=== PATIENT | female | born 1955 | race Caucasian/White ===

== ENCOUNTER → 2017-04-17 09:46 | Outpatient (CLI) | payer OTHER, SELFPAY ==
[2017-04-17 13:39] LABS: Absolute Lymphocyte Count 1.66 X10^3/ul (0.83-4.51); Absolute Neutrophil Count 3.3 X10^3/uL (2.0-7.7); Basophil# 0.01 X10^3/uL; Basophil% 0.2 % (0-1); Eosinophil# 0.19 X10^3/uL; Eosinophils% 3.4 % (0-5); Hematocrit 42.8 % (37-47); Hemoglobin 14.3 g/dl (12.0-15.0); Lymphocyte # 1.66 X10^3/ul (4.0); Lymphocyte % 29.5 % (19-41); Mean Corp Hgb Conc 33.4 g/gl (32-36); Mean Corpuscular Hgb 32.1 pg (27.0-32.0); Mean Corpuscular Volume 96.2 fL (81-99); Mean Platelet Vol. 11.1 fl (6.2-12.0); Monocyte# 0.42 X10^3/uL; Monocyte% 7.5 % (0-10); Neutrophil # 3.33 X10^3/uL (2.7-7.7); Neutrophil % 59.2 % (47-70); Platelet Count 245 K/mm3 (150-450); RBC Distribution Width CV 12.6 % (11.6-14.6); RBC Distribution Width SD 43.9 fl (35.1-43.9); Red Blood Count 4.45 M/mm3 (4.2-5.4); White Blood Count 5.6 K/mm3 (4.4-11.0)
[2017-04-17 13:42] LABS: POSITIVE COUNT NO; POSITIVE DIFFERENTIAL NO; POSITIVE MORPHOLOGY NO
[2017-04-17 14:12] LABS: ALB/GLOB Ratio 1.2 RATIO (0.9-2.4); AST(SGOT) 19 U/L (15-37); Alanine Aminotransfer ALT/SGPT 27 U/L (13-56); Albumin, Serum 3.6 g/dL (3.2-5.0); Alkaline Phosphatase 82 U/L (45-117); Anion Gap 7 (5-15); BUN 18 mg/dL (7-18); BUN/Creat Ratio 24.4 RATIO (10-20); Calcium,Total 8.6 mg/dL (8.5-10.1); Chloride 105 mmol/L (98-107); Creatinine, Serum 0.74 mg/dL (0.55-1.02); EST Glomerular Filtration Rate 85 mL/min (>60); Est Glom Filt Rate - Afr Amer 103 mL/min (>60); Globulin 3.1 g/dL (2.2-4.2); Glucose 92 mg/dL (74-106); Potassium 4.1 mmol/L (3.5-5.1); Protein, Total 6.7 g/dL (6.4-8.2); Sodium Level 140 mmol/L (136-145); Thyroid Stim Hormone (TSH) 2.42 uIU/mL (0.358-3.74)
[2017-04-18 08:47] LABS: Vitamin D,25 Hydroxy 19.7 ng/mL (29.95-100.01)
[2017-04-18 13:15] LABS: Hep C Antibodies <0.1 s/co ratio (0.0-0.9)
== END ==
PROVIDERS: Family Provider Family Medicine Geriatric Medicine; PCP Family Medicine Geriatric Medicine; Visit Provider Family Medicine Geriatric Medicine
DX: Z13.89 Encounter for screening for other disorder (principal); E55.9 Vitamin D deficiency, unspecified; I10 Essential (primary) hypertension
CPT/HCPCS: 36415; 80053; 82306; 84443; 85025; 86803

== ENCOUNTER → 2017-06-16 11:21 | Outpatient (CLI) | payer OTHER, SELFPAY ==
--- NOTE | 2017-06-16 11:27 | RAD_ITS ---
STUDY: X-RAY - LEFT WRIST REASON FOR EXAM: Female, 61 years old. Pain, no known injury TECHNIQUE: 3 view(s) of the wrist were obtained. COMPARISON: None. FINDINGS: Normal visualized distal radius and ulna. Normal radiocarpal articulation. Normal distal radioulnar articulation. Normal carpal bones. Normal carpal articulations. Normal carpometacarpal articulation of the thumb. Normal second through fifth carpometacarpal articulations. Normal visualized metacarpal bones. The soft tissue structures are unremarkable. RAD/Wrist min 3 Views IMPRESSION: Normal x-ray examination of the wrist. Electronically Signed: Tanner Murcia MD at 11:43 EDT , Service support ,
[2017-06-16 13:31] LABS: Absolute Lymphocyte Count 1.77 X10^3/ul (0.83-4.51); Absolute Neutrophil Count 3.6 X10^3/uL (2.0-7.7); Basophil# 0.02 X10^3/uL; Basophil% 0.3 % (0-1); Eosinophil# 0.24 X10^3/uL; Eosinophils% 3.8 % (0-5); Hematocrit 43.7 % (37-47); Hemoglobin 14.6 g/dl (12.0-15.0); Lymphocyte # 1.77 X10^3/ul (4.0); Lymphocyte % 28.2 % (19-41); Mean Corp Hgb Conc 33.4 g/gl (32-36); Mean Corpuscular Hgb 32.1 pg (27.0-32.0); Mean Platelet Vol. 11.4 fl (6.2-12.0); Monocyte# 0.68 X10^3/uL; Monocyte% 10.8 % (0-10); Neutrophil # 3.55 X10^3/uL (2.7-7.7); Neutrophil % 56.7 % (47-70); Platelet Count 226 K/mm3 (150-450); RBC Distribution Width CV 11.9 % (11.6-14.6); RBC Distribution Width SD 40.8 fl (35.1-43.9); Red Blood Count 4.55 M/mm3 (4.2-5.4); White Blood Count 6.3 K/mm3 (4.4-11.0)
[2017-06-16 13:43] LABS: POSITIVE COUNT NO; POSITIVE DIFFERENTIAL NO; POSITIVE MORPHOLOGY NO
[2017-06-16 13:51] LABS: Anion Gap 6 (5-15); BUN 18 mg/dL (7-18); BUN/Creat Ratio 23.1 RATIO (10-20); CRP, High Sensitivity Cardiac 2.65 mg/L; Calcium,Total 8.9 mg/dL (8.5-10.1); Chloride 105 mmol/L (98-107); Creatinine, Serum 0.78 mg/dL (0.55-1.02); EST Glomerular Filtration Rate 80 mL/min (>60); Est Glom Filt Rate - Afr Amer 97 mL/min (>60); Glucose 90 mg/dL (74-106); Potassium 3.9 mmol/L (3.5-5.1); Sodium Level 140 mmol/L (136-145); Uric Acid 5.6 mg/dL (2.6-6.0)
[2017-06-16 13:56] LABS: Erythrocyte Sedimentation Rate 1 mm/hr (0-30)
== END ==
PROVIDERS: Family Provider Family Medicine Geriatric Medicine; PCP Family Medicine Geriatric Medicine; Visit Provider Family Medicine Geriatric Medicine
DX: M25.532 Pain in left wrist (principal); M10.9 Gout, unspecified
CPT/HCPCS: 36415; 73110; 80048; 84550; 85025; 85652; 86141

== ENCOUNTER → 2017-10-13 11:17 | Outpatient (CLI) | payer OTHER, SELFPAY ==
[2017-10-13 13:34] LABS: Absolute Lymphocyte Count 1.72 X10^3/ul (0.83-4.51); Absolute Neutrophil Count 5.6 X10^3/uL (2.0-7.7); Basophil# 0.02 X10^3/uL; Basophil% 0.2 % (0-1); Eosinophil# 0.08 X10^3/uL; Hematocrit 44.3 % (37-47); Hemoglobin 14.8 g/dl (12.0-15.0); Lymphocyte # 1.72 X10^3/ul (4.0); Lymphocyte % 21.2 % (19-41); Mean Corp Hgb Conc 33.4 g/gl (32-36); Mean Corpuscular Hgb 33.3 pg (27.0-32.0); Mean Corpuscular Volume 99.6 fL (81-99); Mean Platelet Vol. 11.3 fl (6.2-12.0); Monocyte# 0.66 X10^3/uL; Monocyte% 8.1 % (0-10); Neutrophil # 5.63 X10^3/uL (2.7-7.7); Neutrophil % 69.4 % (47-70); POSITIVE COUNT NO; POSITIVE DIFFERENTIAL NO; POSITIVE MORPHOLOGY NO; Platelet Count 235 K/mm3 (150-450); RBC Distribution Width SD 43.1 fl (35.1-43.9); Red Blood Count 4.45 M/mm3 (4.2-5.4); White Blood Count 8.1 K/mm3 (4.4-11.0)
[2017-10-13 13:53] LABS: Vitamin D,25 Hydroxy 41.3 ng/mL (29.95-100.01)
[2017-10-13 14:01] LABS: ALB/GLOB Ratio 1.2 RATIO (0.9-2.4); AST(SGOT) 22 U/L (15-37); Alanine Aminotransfer ALT/SGPT 27 U/L (13-56); Alkaline Phosphatase 94 U/L (45-117); Anion Gap 13 (5-15); BUN 16 mg/dL (7-18); BUN/Creat Ratio 21.7 RATIO (10-20); Calcium,Total 8.9 mg/dL (8.5-10.1); Chloride 105 mmol/L (98-107); Creatinine, Serum 0.74 mg/dL (0.55-1.02); EST Glomerular Filtration Rate 85 mL/min (>60); Est Glom Filt Rate - Afr Amer 102 mL/min (>60); Globulin 3.3 g/dL (2.2-4.2); Glucose 76 mg/dL (74-106); Potassium 3.9 mmol/L (3.5-5.1); Protein, Total 7.3 g/dL (6.4-8.2); Sodium Level 140 mmol/L (136-145); Thyroid Stim Hormone (TSH) 1.79 uIU/mL (0.358-3.74)
== END ==
PROVIDERS: Family Provider Family Medicine Geriatric Medicine; PCP Family Medicine Geriatric Medicine; Visit Provider Family Medicine Geriatric Medicine
DX: E55.9 Vitamin D deficiency, unspecified (principal); I10 Essential (primary) hypertension
CPT/HCPCS: 36415; 80053; 82306; 84443; 85025

== ENCOUNTER → 2017-10-21 11:35 | Outpatient (CLI) | payer OTHER, SELFPAY | PROVIDERS: Family Provider Family Medicine Geriatric Medicine; PCP Family Medicine Geriatric Medicine; Visit Provider Family Medicine Geriatric Medicine | DX: R60.0 Localized edema (principal) | CPT/HCPCS: 93970 ==

== ENCOUNTER → 2017-10-23 13:53 | Outpatient (CLI) | payer OTHER, SELFPAY | PROVIDERS: Family Provider Family Medicine Geriatric Medicine; PCP Family Medicine Geriatric Medicine; Visit Provider Family Medicine Geriatric Medicine | DX: R22.1 Localized swelling, mass and lump, neck (principal) | CPT/HCPCS: 76536 ==

== ENCOUNTER → 2018-04-20 09:29 | Outpatient (CLI) | payer OTHER, SELFPAY ==
[2018-04-20 11:59] LABS: Absolute Lymphocyte Count 2.02 X10^3/ul (0.83-4.51); Absolute Neutrophil Count 3.9 X10^3/uL (2.0-7.7); Basophil# 0.02 X10^3/uL; Basophil% 0.3 % (0-1); Eosinophil# 0.17 X10^3/uL; Eosinophils% 2.5 % (0-5); Hematocrit 44.8 % (37-47); Hemoglobin 14.6 g/dl (12.0-15.0); Lymphocyte # 2.02 X10^3/ul (4.0); Lymphocyte % 29.2 % (19-41); Mean Corp Hgb Conc 32.6 g/gl (32-36); Mean Corpuscular Hgb 31.9 pg (27.0-32.0); Mean Corpuscular Volume 97.8 fL (81-99); Mean Platelet Vol. 11.5 fl (6.2-12.0); Monocyte# 0.76 X10^3/uL; Neutrophil # 3.94 X10^3/uL (2.7-7.7); Neutrophil % 56.9 % (47-70); Platelet Count 240 K/mm3 (150-450); RBC Distribution Width CV 12.5 % (11.6-14.6); RBC Distribution Width SD 44.7 fl (35.1-43.9); Red Blood Count 4.58 M/mm3 (4.2-5.4); White Blood Count 6.9 K/mm3 (4.4-11.0)
[2018-04-20 12:01] LABS: POSITIVE COUNT NO; POSITIVE DIFFERENTIAL NO; POSITIVE MORPHOLOGY NO
[2018-04-20 12:18] LABS: Vitamin D,25 Hydroxy 25.6 ng/mL (29.95-100.01)
[2018-04-20 12:19] LABS: ALB/GLOB Ratio 1.2 RATIO (0.9-2.4); AST(SGOT) 21 U/L (15-37); Alanine Aminotransfer ALT/SGPT 35 U/L (13-56); Albumin, Serum 3.7 g/dL (3.2-5.0); Alkaline Phosphatase 91 U/L (45-117); Anion Gap 10 (5-15); BUN 16 mg/dL (7-18); BUN/Creat Ratio 20.1 RATIO (10-20); Calcium,Total 8.7 mg/dL (8.5-10.1); Chloride 105 mmol/L (98-107); EST Glomerular Filtration Rate 77 mL/min (>60); Est Glom Filt Rate - Afr Amer 94 mL/min (>60); Globulin 3.1 g/dL (2.2-4.2); Glucose 77 mg/dL (74-106); Potassium 3.8 mmol/L (3.5-5.1); Protein, Total 6.8 g/dL (6.4-8.2); Sodium Level 143 mmol/L (136-145); Thyroid Stim Hormone (TSH) 3.13 uIU/mL (0.358-3.74); Uric Acid 5.5 mg/dL (2.6-6.0)
== END ==
PROVIDERS: Family Provider Family Medicine Geriatric Medicine; PCP Family Medicine Geriatric Medicine; Visit Provider Family Medicine Geriatric Medicine
DX: E11.9 Type 2 diabetes mellitus without complications (principal); I10 Essential (primary) hypertension; M10.9 Gout, unspecified
CPT/HCPCS: 36415; 80053; 82306; 84443; 84550; 85025

== ENCOUNTER → 2018-10-30 08:55 | Outpatient (CLI) | payer OTHER, SELFPAY ==
[2018-10-30 12:17] LABS: Absolute Lymphocyte Count 1.88 X10^3/uL (0.83-4.51); Absolute Neutrophil Count 3.6 X10^3/uL (2.0-7.7); Basophil# 0.03 X10^3/uL; Basophil% 0.5 % (0-1); Eosinophil# 0.18 X10^3/uL; Eosinophils% 2.8 % (0-5); Hematocrit 42.5 % (37-47); Hemoglobin 14.2 g/dL (12.0-15.0); Lymphocyte # 1.88 X10^3/ul (4.0); Lymphocyte % 29.6 % (19-41); Mean Corp Hgb Conc 33.4 g/dL (32-36); Mean Corpuscular Hgb 32.1 pg (27.0-32.0); Mean Corpuscular Volume 96.2 fL (81-99); Mean Platelet Vol. 11.2 fl (6.2-12.0); Monocyte# 0.68 X10^3/uL; Monocyte% 10.7 % (0-10); NRBC Flagged by Analyzer 0 % (0-5); Neutrophil # 3.56 X10^3/uL (2.7-7.7); Neutrophil % 56.1 % (47-70); Platelet Count 213 K/mm3 (150-450); RBC Distribution Width CV 11.9 % (11.6-14.6); RBC Distribution Width SD 41.6 fl (35.1-43.9); Red Blood Count 4.42 M/mm3 (4.2-5.4); White Blood Count 6.4 K/mm3 (4.4-11.0)
[2018-10-30 13:20] LABS: Vitamin D,25 Hydroxy 66.8 ng/mL (29.95-100.01)
[2018-10-30 14:47] LABS: ALB/GLOB Ratio 1.1 RATIO (0.9-2.4); AST(SGOT) 27 U/L (15-37); Alanine Aminotransfer ALT/SGPT 31 U/L (13-56); Albumin, Serum 3.7 g/dL (3.2-5.0); Alkaline Phosphatase 80 U/L (45-117); Anion Gap 8 (5-15); BUN 19 mg/dL (7-18); Calcium,Total 8.5 mg/dL (8.5-10.1); Chloride 109 mmol/L (98-107); Creatinine, Serum 0.86 mg/dL (0.55-1.02); EST Glomerular Filtration Rate 70 mL/min (>60); Est Glom Filt Rate - Afr Amer 85 mL/min (>60); Globulin 3.5 g/dL (2.2-4.2); Glucose 74 mg/dL (74-106); Potassium 4.1 mmol/L (3.5-5.1); Protein, Total 7.2 g/dL (6.4-8.2); Sodium Level 140 mmol/L (136-145); Thyroid Stim Hormone (TSH) 1.98 uIU/mL (0.358-3.74); Uric Acid 6.1 mg/dL (2.6-6.0)
== END ==
PROVIDERS: Family Provider Family Medicine Geriatric Medicine; PCP Family Medicine Geriatric Medicine; Visit Provider Family Medicine Geriatric Medicine
DX: E11.9 Type 2 diabetes mellitus without complications (principal); E55.9 Vitamin D deficiency, unspecified; I10 Essential (primary) hypertension; M10.9 Gout, unspecified
CPT/HCPCS: 36415; 80053; 82306; 84443; 84550; 85025

== ENCOUNTER → 2018-11-13 10:09 | Outpatient (CLI) | payer OTHER, SELFPAY ==
[2018-11-13 13:26] LABS: Anion Gap 8 (5-15); BUN 17 mg/dL (7-18); BUN/Creat Ratio 23.4 RATIO (10-20); Calcium,Total 8.9 mg/dL (8.5-10.1); Chloride 109 mmol/L (98-107); Creatinine, Serum 0.73 mg/dL (0.55-1.02); EST Glomerular Filtration Rate 86 mL/min (>60); Est Glom Filt Rate - Afr Amer 104 mL/min (>60); Glucose 91 mg/dL (74-106); Sodium Level 143 mmol/L (136-145)
== END ==
PROVIDERS: Family Provider Family Medicine Geriatric Medicine; PCP Family Medicine Geriatric Medicine; Visit Provider Family Medicine Geriatric Medicine
DX: I10 Essential (primary) hypertension (principal)
CPT/HCPCS: 36415; 80048

== ENCOUNTER → 2019-04-20 10:24 | Outpatient (CLI) | payer OTHER, SELFPAY ==
[2019-04-20 12:40] LABS: Absolute Neutrophil Count 4.1 X10^3/uL (2.0-7.7); Basophil# 0.03 X10^3/uL; Basophil% 0.4 % (0-1); Eosinophil# 0.35 X10^3/uL; Eosinophils% 5.1 % (0-5); Hematocrit 41.3 % (37-47); Hemoglobin 13.6 g/dL (12.0-15.0); Lymphocyte % 24.6 % (19-41); Mean Corp Hgb Conc 32.9 g/dL (32-36); Mean Corpuscular Hgb 31.4 pg (27.0-32.0); Mean Corpuscular Volume 95.4 fL (81-99); Mean Platelet Vol. 11.6 fl (6.2-12.0); Monocyte# 0.76 X10^3/uL; NRBC Flagged by Analyzer 0 % (0-5); Neutrophil # 4.05 X10^3/uL (2.7-7.7); Neutrophil % 58.6 % (47-70); Platelet Count 231 K/mm3 (150-450); RBC Distribution Width CV 12.4 % (11.6-14.6); RBC Distribution Width SD 43.3 fl (35.1-43.9); Red Blood Count 4.33 M/mm3 (4.2-5.4); White Blood Count 6.9 K/mm3 (4.4-11.0)
[2019-04-20 13:08] LABS: ALB/GLOB Ratio 0.9 RATIO (0.9-2.4); AST(SGOT) 16 U/L (15-37); Alanine Aminotransfer ALT/SGPT 28 U/L (13-56); Albumin, Serum 3.4 g/dL (3.2-5.0); Alkaline Phosphatase 93 U/L (45-117); Anion Gap 5 (5-15); BUN 23 mg/dL (7-18); BUN/Creat Ratio 25.7 RATIO (10-20); Calcium,Total 8.8 mg/dL (8.5-10.1); Chloride 107 mmol/L (98-107); Creatinine, Serum 0.89 mg/dL (0.55-1.02); EST Glomerular Filtration Rate 68 mL/min (>60); Est Glom Filt Rate - Afr Amer 82 mL/min (>60); Globulin 3.6 g/dL (2.2-4.2); Glucose 82 mg/dL (74-106); Potassium 4.1 mmol/L (3.5-5.1); Sodium Level 139 mmol/L (136-145); Thyroid Stim Hormone (TSH) 3.19 uIU/mL (0.358-3.74); Uric Acid 5.4 mg/dL (2.6-6.0)
[2019-04-20 14:47] LABS: Vitamin D,25 Hydroxy 78.4 ng/mL
== END ==
PROVIDERS: PCP Family Medicine Geriatric Medicine; Visit Provider Family Medicine Geriatric Medicine
DX: I10 Essential (primary) hypertension (principal); E11.9 Type 2 diabetes mellitus without complications; E55.9 Vitamin D deficiency, unspecified; M10.9 Gout, unspecified
CPT/HCPCS: 36415; 80053; 82306; 84443; 84550; 85025

== ENCOUNTER → 2019-04-29 11:43 | Outpatient (CLI) | payer OTHER, SELFPAY | PROVIDERS: PCP Family Medicine Geriatric Medicine; Referring Provider Family Medicine Geriatric Medicine; Visit Provider Family Medicine Geriatric Medicine | DX: R50.9 Fever, unspecified (principal) | CPT/HCPCS: 87633 ==

== ENCOUNTER 2022-07-31 07:53 | Emergency (ER) | payer MEDICARE, OTHER, SELFPAY ==
[2022-07-31 07:55] VITALS: BP 99/49; PULSE 112; RESP 18; TEMP 35.7; O2SAT 97; BMI 25.4
--- NOTE | 2022-07-31 08:19 | CT_ITS ---
STUDY: CT ABDOMEN AND PELVIS WITH CONTRAST REASON FOR EXAM: Female, 66 years old. RLQ and upper abd pain. History of carcinoid tumor. Mesenteric venous thrombosis. Prior small bowel resection. RADIATION DOSAGE (If Supplied By Facility): CTDIvol = ( 10.10 ) mGy, DLP = ( 479.30 ) mGycm TECHNIQUE: Transaxial images were obtained from the dome of the diaphragm to the symphysis pubis without oral contrast. IV 100mL Isovue-300 was administered. Sagittal and coronal images were reconstructed. Individualized dose optimization techniques were used for this CT. COMPARISON: Comparison is made with prior study dated February 07, 2014. FINDINGS: The visualized lung bases are unremarkable. The visualized portions of the heart are within normal limits. There is a 1.5 cm well-defined rounded nodule in the mesenteric fat anterior to the left lobe of the liver. This may represent a small lymph node. There is a faint 6.1 mm hypodense nodule in the peripheral lateral aspect of the right lobe of the liver. A similar-appearing hypodense nodule seen in the right lobe of the liver in the midportion. Small amount of free fluid surrounding the liver. The gallbladder is not visualized most likely secondary to prior cholecystectomy. Normal spleen. Normal pancreas. Free fluid is seen in the left upper quadrant. Normal bilateral adrenal glands. There is a 3.3 cm x 3.3 cm cyst in the posterior aspect of the lower pole of the right kidney. A similar appearing cyst measuring 2.9 cm is seen along the medial aspect of the upper pole. Normal left kidney. Normal visualized stomach. Dilated small bowel loops with evidence of a fecal laceration within the lumen suggestive of a subacute bowel obstruction. Surgical clips are seen in the right lower quadrant most likely secondary to prior anastomosis. There is evidence of circumferential wall thickening of several of the small bowel loops. There is stranding within the root of the mesentery with the swirling of the mesenteric artery and mesenteric vein. Findings are suggestive of recurrent carcinoid tumor with fibrosis at the root of the mesentery. Moderate amount of fecal material is seen in the distal colon and rectum. The appendix is visualized and appears normal. Normal abdominal aorta. Normal inferior vena cava. Normal retroperitoneum. Normal urinary bladder. I suspect a 3.5 cm x 4.2 cm mass in the left adnexa. Normal abdominal wall. There are mild degenerative changes of the visualized lumbar spine. CT/Abdomen/Pelvis W IV Cont ONLY IMPRESSION: Perisplenic and perihepatic free fluid. Subtle subcentimeter nodules in the right lobe of the liver as described. Dilated small bowel loops with fecal-like dictation of the small bowel contents and swirling of the mesentery territory as described. Findings are suggestive of fibrosis due to recurrent known carcinoid tumor. Left adnexal mass. N.B. : The above Results were Read Back by Apolinar Bartholomew MD to Joel Casanova MD, and understanding confirmed on 07/31/2022 10:03:38 (ET). Electronically Signed: Apolinar Bartholomew MD at 10:04 EDT ,
--- NOTE | 2022-07-31 08:20 | ED.VIS.GI ---
HPI HPI - GI History of Present Illness Chief Complaint: Abd Pain Informant: patient Narrative Narrative: Patient had diffuse upper and lower abdominal pain all day yesterday, she felt nauseated and did not feel like eating and took in very little food, she vomited 3 times, she states it looked greenish almost like bile rather than the usual yellow and she is all no blood or coffee grounds but this morning she had a black stool which brought her to the emergency department. The other symptoms are unchanged right now. She takes clopidogrel because in March she was diagnosed with some type of blood clot in a mesenteric vein (per pt suggestion only - no other records avail), this was at a hospital in [place] and diagnosed with CT. She takes no anticoagulants for any reason. Within the past 2 months or so, she started feeling reflux and has been self treating with Prilosec 20 mg once daily. No known history of stomach ulcers. [facility] Medical History (Updated 07/31/22 @ 14:[address] Joel Casanova MD) Carcinoid tumor High cholesterol Hypertension Home Medications Lisinopril/Hydrochlorothiazide [Zestoretic 20/12.5 Tablet] 1 tab PO DAILY 01/29/14 [History Last Taken Unknown] pravastatin 40 mg tablet 40 mg PO QHS 01/29/14 [History Last Taken Unknown] promethazine 25 mg tablet 25 mg PO Q6H PRN PRN Nausea 01/29/14 [History Last Taken Unknown] Nexium 05/18/15 [History Last Taken Unknown] dicyclomine 10 mg capsule 20 mg PO TIDAC ##20 05/18/15 [Rx Last Taken Unknown] famotidine 40 mg tablet (Pepcid) 40 mg PO DAILY 30 days 05/18/15 [Rx Last Taken Unknown] ondansetron HCl 8 mg tablet 8 mg PO Q8H PRN PRN nausea and/or vomiting ##10 05/18/15 [Rx Last Taken Unknown] levothyroxine 25 mcg tablet 25 mcg PO DAILY 07/31/22 [History Last Taken Unknown] ondansetron 4 mg disintegrating tablet 8 mg PO Q8H PRN PRN Nausea #20 tabs 07/31/22 [Rx Last Taken Unknown] oxycodone-acetaminophen 5 mg-325 mg tablet 1 tab PO Q6H PRN PRN Pain 3 days #12 TABLETS 07/31/22 [Rx Last Taken Unknown] Allergy/AdvReac Type Severity Reaction Status Date / Time No Known Allergies Allergy Verified 05/18/15 10:18 Surgical History (Updated 07/31/22 @ 08:[address] Joel Casanova MD) History of bilateral tubal ligation History of bowel resection Hx of cholecystectomy Social History Smoking Status: Former smoker ROS ROS ED Constitutional Constitutional ED: Reports anorexia; Denies chills or fever(s) Eyes Eyes: Denies change in vision or diplopia ENT ENT ED: Denies rhinorrhea or sore throat Cardiovascular Cardiovascular: Denies chest pain or palpitations Respiratory/Chest Respiratory/Chest: Denies cough or dyspnea Gastrointestinal Gastrointestinal: Reports abdominal pain, melena, nausea and vomiting; Denies diarrhea Genitourinary Genitourinary ED: Denies dysuria or hematuria Musculoskeletal Musculoskeletal: Denies back pain or neck pain Integumentary Denies abscess or rash Neurologic Neurologic: Denies headache(s), paresthesias or weakness Psychiatric Psychiatric: Denies anxiety or suicidal thoughts EXAM Physical Exam Const Vital Signs: 07/31/22 07:55 07/31/22 09:17 07/31/22 10:04 Temperature 96.2 F L Temperature Source Temporal Pulse Rate 112 H 92 Pulse Rate [Lying] 89 Pulse Rate [Sitting (for 1 minute prior to obtaining)] 94 Pulse Rate [Standing (for 1 minute prior to obtaining)] 103 H Respiratory Rate 18 14 Blood Pressure 99/49 L 110/62 Blood Pressure [Lying] 112/65 Blood Pressure [Sitting (for 1 minute prior to obtaining)] 115/66 Blood Pressure [Standing (for 1 minute prior to obtaining)] 100/64 Blood Pressure Mean 65 78 Blood Pressure Mean [Lying] 80 Blood Pressure Mean [Sitting (for 1 minute prior to obtaining)] 82 Blood Pressure Mean [Standing (for 1 minute prior to obtaining)] 76 Pulse Ox 97 98 Oxygen Delivery Method Room Air Room Air 07/31/22 13:02 Temperature Temperature Source Pulse Rate 81 Pulse Rate [Lying] Pulse Rate [Sitting (for 1 minute prior to obtaining)] Pulse Rate [Standing (for 1 minute prior to obtaining)] Respiratory Rate 18 Blood Pressure 110/66 Blood Pressure [Lying] Blood Pressure [Sitting (for 1 minute prior to obtaining)] Blood Pressure [Standing (for 1 minute prior to obtaining)] Blood Pressure Mean 80 Blood Pressure Mean [Lying] Blood Pressure Mean [Sitting (for 1 minute prior to obtaining)] Blood Pressure Mean [Standing (for 1 minute prior to obtaining)] Pulse Ox 95 Oxygen Delivery Method Room Air Positive well nourished and well developed General Appearance ED: well developed and NAD HEENT Reports moist mucous membranes normocephalic and atraumatic Eyes PERRL and EOMs intact bilaterally Neck full ROM and supple Resp normal respiratory effort and clear to auscultation bilaterally Cardio regular rate, regular rhythm and no murmurs GI non-distended GI Narrative: Tender epigastrium and right lower quadrant mostly; otherwise subjectively mild diffuse tenderness, no guarding or rebound tenderness. On rectal no gross blood, no tenderness, stool is not grossly melanotic, there is a scant amount present. Auscultation: hypoactive bowel sounds Palpation: soft Back/Spine no CVA tenderness General Back: other FROM Extremity normal to inspection General Extremety ED: Negative for edema, pulses abnormal or tenderness General Extremity: Negative for edema or pulses abnormal Neuro oriented x3, CN's II-XII intact bilaterally, no sensory deficits noted and gait normal Sensorium / Orientation: awake and alert Motor Exam: strength 5/5 throughout Psych mental status grossly normal and thought process normal Skin no rashes or lesions noted and no wounds MDM MDM MDM Narrative Medical decision making narrative: Differential includes sources of upper GI bleeding such as peptic ulcer disease and gastritis, but also bowel obstruction given the patient's history of multiple abdominal surgeries including carcinoid, with or without ischemic bowel. Therefore labs including a lactic acid, type and screen, and a CT of the abdomen/pelvis were obtained, the radiologist called me out of concern for recurrence of her carcinoid tumor along with the presence of what appears to be a bowel obstruction. I sent a Hemoccult. Her lactate is within normal limits, she is not having active bleeding, arguing against acute ischemic bowel. Treated the patient with IV fluids, Zofran. When I went to discuss these findings with the patient, she states that she is scheduled for colorectal surgery in 6 [address] surgeon [address] Marroquin at [facility]. When asked details, she states something about the findings from March still being there. It is unknown if she actually has mesenteric vein thrombosis since it would be unusual to undergo abdominal surgery for this, or whether she already had testing and knew that she had recurrence of her carcinoid. Given that she is established with colorectal at [facility], I do not see a point in discussing with staff for admission here, I think she requires transfer, I called to discuss with colorectal there first. The transfer center got me in touch with the oncology service Dr. Banda, who then in turn touched base with colorectal service after I push the images to their gravity meter observer so that they could review and determine whether the patient really needs to be transferred or not; clinically I think she is doing relatively well after treating her symptoms and remains clinically and hemodynamically stable. I then discussed with colorectal who reviewed the patient's notes at [facility] as well as the images we did today in comparison to previous images that they have, and in the end it looks like things are pretty stable appearing. After discussing more with the patient, she confirms my suspicion which she did not say earlier that she always has abdominal pain and this is just worse in the past 3 days, and again she has not been vomiting. Therefore I do not think she has any acute small bowel obstruction, she was already scheduled for surgery 09/05 for basically I think tumor debulking for obstructive issues according to the surgeon, he and I both agree that it would not necessarily be helpful to have her be transferred to [facility] emergently today. The patient is amenable to trying analgesics and nausea medications, and following up. If she vomits and cannot keep anything down and is getting worse she is welcome and encouraged to return to the ER here she is comfortable with that plan. Lab Data Attestation: I reviewed the patient's lab results. Labs: Laboratory Results - last 24 hr 07/31/22 07/31/22 07/31/22 08:24 08:24 08:24 WBC 8.8 RBC 3.74 L Hgb 12.0 Hct 36.6 L MCV 97.9 MCH 32.1 H MCHC 32.8 RDW Std Deviation 42.0 RDW Coeff of Nancy 11.6 Plt Count 174 MPV 9.5 Immature Gran % (Auto) 0.200 Neut % (Auto) 85.5 H Lymph % (Auto) 4.0 L Barron % (Auto) 10.2 H Eos % (Auto) 0.0 Baso % (Auto) 0.1 Absolute Neuts (auto) 7.5 Absolute Lymphs (auto) 0.35 L Nucleated RBC % 0 Differential Comment SCANNED Sodium 138 Potassium 4.1 Chloride 106 Carbon Dioxide 27.0 Anion Gap 5 BUN 16 Creatinine 0.86 Estim Creat Clear Calc 58.15 Est GFR (MDRD) Af Amer 85 Est GFR (MDRD) Non-Af 70 BUN/Creatinine Ratio 18.6 Glucose 129 H Lactic Acid Calcium 9.1 Total Bilirubin 0.80 AST 12 L ALT 15 Alkaline Phosphatase 72 Total Protein 7.0 Albumin 3.2 Globulin 3.8 Albumin/Globulin Ratio 0.8 L Blood Type A POSITIVE Antibody Screen NEGATIVE 07/31/22 08:24 WBC RBC Hgb Hct MCV MCH MCHC RDW Std Deviation RDW Coeff of Nancy Plt Count MPV Immature Gran % (Auto) Neut % (Auto) Lymph % (Auto) Barron % (Auto) Eos % (Auto) Baso % (Auto) Absolute Neuts (auto) Absolute Lymphs (auto) Nucleated RBC % Differential Comment Sodium Potassium Chloride Carbon Dioxide Anion Gap BUN Creatinine Estim Creat Clear Calc Est GFR (MDRD) Af Amer Est GFR (MDRD) Non-Af BUN/Creatinine Ratio Glucose Lactic Acid 1.7 Calcium Total Bilirubin AST ALT Alkaline Phosphatase Total Protein Albumin Globulin Albumin/Globulin Ratio Blood Type Antibody Screen Radiography Diagnostic Testing: Clinical Impression(s) from Imaging Studies Abdomen/Pelvis CT 07/31/22 08:19 IMPRESSION: Perisplenic and perihepatic free fluid. Subtle subcentimeter nodules in the right lobe of the liver as described. Dilated small bowel loops with fecal-like dictation of the small bowel contents and swirling of the mesentery territory as described. Findings are suggestive of fibrosis due to recurrent known carcinoid tumor. Left adnexal mass. N.B. : The above Results were Read Back by Apolinar Bartholomew MD to Joel Casanova MD, and understanding confirmed on 07/31/2022 10:03:38 (ET). Electronically Signed: Apolinar Bartholomew MD at 10:04 EDT , ADDENDUM: 07/31/22 1011 IMPRESSION: Perisplenic and perihepatic free fluid. Subtle subcentimeter nodules in the right lobe of the liver as described. Dilated small bowel loops with fecal-like dictation of the small bowel contents and swirling of the mesentery territory as described. Findings are suggestive of fibrosis due to recurrent known carcinoid tumor. Left adnexal mass. N.B. : The above Results were Read Back by Apolinar Bartholomew MD to Joel Casanova MD, and understanding confirmed on 07/31/2022 10:03:38 (ET). Electronically Signed: Apolinar Bartholomew MD at 10:04 EDT , Discharge Plan Triage Chief Complaint: Abd Pain Other Complaint: GI Bleed ED Provider: Joel Casanova Dx/Rx/DC Orders Clinical Impression: Carcinoid tumor of abdomen, Diffuse abdominal pain Instructions: Abdominal Pain Prescriptions: New oxycodone-acetaminophen [oxycodone-acetaminophen] 5-325 mg tablet 1 tab PO Q6H PRN PRN (Reason: Pain) 3 Days Qty: 12 0RF ondansetron [ondansetron] 4 mg tablet,disintegrating 8 mg PO Q8H PRN PRN (Reason: Nausea) Qty: 20 0RF No Action pravastatin 40 MG tablet 40 mg PO QHS promethazine 25 MG tablet 25 mg PO Q6H PRN PRN (Reason: Nausea) Lisinopril/Hydrochlorothiazide [Zestoretic 20/12.5 Tablet] 1 TABLET tablet 1 tab PO DAILY Nexium famotidine [Pepcid] 40 MG tablet 40 mg PO DAILY 30 Days 0RF ondansetron HCl 8 MG tablet 8 mg PO Q8H PRN PRN (Reason: nausea and/or vomiting) Qty: 10 0RF dicyclomine 10 MG capsule 20 mg PO TIDAC Qty: 20 0RF levothyroxine 25 mcg tablet 25 mcg PO DAILY Primary Care Provider: WILMER SORTO CNP Referrals: Valentin Ramos Chi, MD [Med Staff - Active Staff] - 3-5 Days if not improving (Or your [facility] doctors) Disposition Disposition: Home, Self Care
[2022-07-31] MEDS: Ondansetron 4 MG/2 ML Vial IV (08:50)
[2022-07-31 08:59] LABS: Absolute Lymphocyte Count 0.35 X10^3/uL (0.83-4.51); Absolute Neutrophil Count 7.5 X10^3/uL (2.0-7.7); Basophil# 0.01 X10^3/uL; Basophil% 0.1 % (0-1); Hematocrit 36.6 % (37-47); Lymphocyte # 0.35 X10^3/ul (0.83-4.51); Mean Corp Hgb Conc 32.8 g/dL (32-36); Mean Corpuscular Hgb 32.1 pg (27.0-32.0); Mean Corpuscular Volume 97.9 fL (81-99); Mean Platelet Vol. 9.5 fl (6.2-12.0); Monocyte% 10.2 % (0-10); NRBC Flagged by Analyzer 0 % (0-5); Neutrophil # 7.52 X10^3/uL (2.7-7.7); Neutrophil % 85.5 % (47-70); POSITIVE DIFFERENTIAL YES; Platelet Count 174 K/mm3 (150-450); RBC Distribution Width CV 11.6 % (11.6-14.6); Red Blood Count 3.74 M/mm3 (4.2-5.4); White Blood Count 8.8 K/mm3 (4.4-11.0)
[2022-07-31 09:10] LABS: Differential Indicated SCAN CRITERIA MET
[2022-07-31 09:14] LABS: ALB/GLOB Ratio 0.8 RATIO (0.9-2.4); AST(SGOT) 12 U/L (15-37); Alanine Aminotransfer ALT/SGPT 15 U/L (13-56); Albumin, Serum 3.2 g/dL (3.2-5.0); Alkaline Phosphatase 72 U/L (45-117); Anion Gap 5 (5-15); BUN 16 mg/dL (7-18); BUN/Creat Ratio 18.6 RATIO (10-20); Calcium,Total 9.1 mg/dL (8.5-10.1); Chloride 106 mmol/L (98-107); Creatinine, Serum 0.86 mg/dL (0.55-1.02); EST Glomerular Filtration Rate 70 mL/min (>60); Est Glom Filt Rate - Afr Amer 85 mL/min (>60); Estimated Creatinine Clearance 58.15 ml/min; Globulin 3.8 g/dL (2.2-4.2); Glucose 129 mg/dL (74-106); Potassium 4.1 mmol/L (3.5-5.1); Sodium Level 138 mmol/L (136-145)
[2022-07-31 09:17] VITALS: BP 100/64; BP 112/65; BP 115/66; PULSE 103; PULSE 89; PULSE 94
[2022-07-31 09:19] LABS: Differential Comment SCANNED
[2022-07-31 09:49] LABS: Lactic Acid 1.7 mmol/L (0.4-1.9)
[2022-07-31 10:04] VITALS: BP 110/62; PULSE 92; RESP 14; O2SAT 98
--- NOTE | 2022-07-31 10:21 | NURSING ---
CALLED [facility] AND MADE INITIAL CALL FOR A TRANSFER. TALKED TO ANA LAURA FAXED FACESHEET
--- NOTE | 2022-07-31 11:41 | NURSING ---
[facility] DR FOR DR SANCHEZ
[2022-07-31] MEDS: Morphine 4 MG/ML Syringe IV (11:46)
[2022-07-31 13:02] VITALS: BP 110/66; PULSE 81; RESP 18; O2SAT 95
[2022-07-31 14:13] VITALS: BP 104/67
--- NOTE | 2022-07-31 14:29 | ED.RN ---
Updated patient on when to return to ER after discharge. Pt. agreeable and has no further questions.
== END 2022-07-31 14:30 | disposition home or self-care (01) ==
PROVIDERS: Emergency Provider Emergency Medicine; Visit Provider Emergency Medicine
DX: C7A.098 Malignant carcinoid tumors of other sites (principal); R10.84 Generalized abdominal pain; Z79.899 Other long term (current) drug therapy; Z87.891 Personal history of nicotine dependence
CPT/HCPCS: 74177; 80053; 82274; 83605; 85025; 86850; 86900; 86901; 96365; 96366; 96375; 99284; Q9967; A4216; J2405; J3490

== ENCOUNTER 2023-08-27 09:02 | Outpatient (CLI) | payer MEDICARE, OTHER, SELFPAY ==
[2023-08-27 09:25] VITALS: BP 95/46; PULSE 86; RESP 16; TEMP 36.3; O2SAT 100; BMI 22.8
[2023-08-27] MEDS: Acetaminophen 325 MG Tablet 650 MG PO (09:31)
[2023-08-27] MEDS: 0.9% Normal Saline (500mL Bag) 500 ML 15 ML IV (09:32)
[2023-08-27] MEDS: 0.9% NaCl VAD Flush IV ×2 (09:32→11:43)
[2023-08-27 10:01] VITALS: BP 92/48; PULSE 82; RESP 16; TEMP 36.4
[2023-08-27 11:01] VITALS: BP 96/52; PULSE 79; RESP 16; TEMP 36.9; O2SAT 98
[2023-08-27 11:43] VITALS: BP 95/55; PULSE 78; RESP 16; TEMP 36.3; O2SAT 98
== END 2023-08-27 23:59 | disposition home or self-care (01) ==
LOC: MEDOUTP 09:02
PROVIDERS: Visit Provider Specialist
DX: D64.9 Anemia, unspecified (principal); C7A.8 Other malignant neuroendocrine tumors
CPT/HCPCS: 96360; 96361; 36430; 86850; 86900; 86901; 86920; J7040; P9016; A4216